=== PATIENT | male | born 1990 | race Caucasian/White ===

== ENCOUNTER 2021-04-25 20:16 | Emergency (ER) | payer OTHER ==
[~2021-04-25] VITALS: Ht 167.6 cm; Wt 83.0 kg
[2021-04-25 20:16] VITALS: BP 142/89
--- NOTE | 2021-04-25 22:27 | REPVR ---
PROCEDURE INFORMATION: Exam: XR Right Shoulder Exam date and time: 04/25/2021 9:08 PM Age: 30 years old Clinical indication: Shoulder; Right; Patient HX: Increasing pain for 3 weeks; Additional info: Pain/injury TECHNIQUE: Imaging protocol: XR Right shoulder. Views: 2 or more views. COMPARISON: No relevant prior studies available. FINDINGS: Bones/joints: Joint spaces are normal. No fracture or malalignment. Soft tissues: Unremarkable. IMPRESSION: No fracture or malalignment. Electronically signed by: Thom Worthington On 04/25/2021 22:26:26 PM
== END 2021-04-25 22:40 | disposition left against medical advice (07) ==
LOC: M ED 20:16
DX: Z53.21 Procedure and treatment not carried out due to patient leaving prior to being seen by health care provider (principal)